=== PATIENT | female | born 2000 | race Hispanic/Latino ===

== ENCOUNTER 2023-01-21 10:19 | Emergency (ER) | payer SELFPAY ==
[2023-01-21 10:44] VITALS: BP 120/71; PULSE 121; RESP 18; TEMP 39.9; O2SAT 100
--- NOTE | 2023-01-21 11:47 | ED.URI ---
HPI - URI/Sore Throat General Chief Complaint: Upper Respiratory Infection Stated Complaint: Sore Throat/Bodyaches Time Seen by Provider: 01/21/23 11:33 Source: patient Mode of arrival: ambulatory Limitations: no limitations History of Present Illness HPI Narrative: Patient presents today complaining of headache, sore throat, back pain, and fever since last night. She currently rates her pain 10/10 and has not been taking any [id number] medications for symptoms prior to arrival. Denies nausea or vomiting. Denies diarrhea or abdominal pain. No recent antibiotic use. Related Data Allergies Allergy/AdvReac Type Severity Reaction Status Date / Time No Known Allergies Allergy Verified 01/21/23 11:44 Review of Systems Review of Systems: CONSTITUTIONAL: Denies body aches, chills, or sweats.+ fever EYES: Denies visual changes, redness, or discharge. ENT: Denies rhinorrhea, congestion, or otalgia.+ sore throat CARDIOVASCULAR: Denies chest pain, palpitations, or edema. RESPIRATORY: Denies cough or dyspnea. GASTROINTESTINAL: Denies abdominal pain, nausea, vomiting, or diarrhea. GENITOURINARY: Denies dysuria or hematuria. SKIN: Denies rash, itching, or wounds. MUSCULOSKELETAL: Denies joint pain, or myalgia.+ back pain NEUROLOGIC: Denies numbness, tingling, or weakness.+ headache PSYCH: Denies depression or anxiety. PMFSH Comments At time of signature, I have reviewed and agree with nursing past medical, surgical, social and family history unless otherwise noted. Please see nursing chart for further information. There is no relevant family history pertinent to the presenting complaint Exam Narrative: GENERAL: Mildly ill-appearing, well-nourished, tearful. HEAD: Normocephalic, atraumatic. EYES: EOMI. No redness or drainage. Conjunctivae normal. ENT: Mucous membranes pink and moist. Nares clear. No rhinorrhea. TMs normal bilaterally. Throat erythematous. Tonsils 3+. Uvula midline. NECK: Normal AROM. Supple. No lymphadenopathy. CHEST: No respiratory distress. Clear to auscultation. HEART: Regular rate and rhythm. No murmur appreciated. Normal peripheral pulses. MUSCULOSKELETAL: No bony tenderness of the spine. EXTREMITIES: Normal range of motion. No edema. SKIN: Warm, dry, no rash. Capillary refill normal. Normal skin turgor. NEURO: No focal deficits. Alert and oriented x3. Gait steady. PSYCH: Normal affect. No signs of depression or anxiety. Course Course Level of Care: Express Care Visit Vital Signs Vital signs: Vital Signs Temperature 103.9 F H 01/21/23 10:44 Pulse Rate 121 H 01/21/23 10:44 Respiratory Rate 18 01/21/23 10:44 Blood Pressure 120/71 01/21/23 10:44 Pulse Oximetry 100 01/21/23 10:44 Oxygen Delivery Room Air 01/21/23 10:44 Temperature 103.9 F H 01/21/23 10:44 Pulse Rate 121 H 01/21/23 10:44 Respiratory Rate 18 01/21/23 10:44 Blood Pressure 120/71 01/21/23 10:44 Pulse Oximetry 100 01/21/23 10:44 Oxygen Delivery Room Air 01/21/23 10:44 Reviewed MDM - URI/Sore Throat MDM Narrative Medical decision making narrative: Rapid strep positive. Ibuprofen provided for pain and fever. Amoxicillin sent to pharmacy. Anticipatory guidance given. Differential Diagnosis Differential diagnosis: Likely upper respiratory infection, viral infection, pharyngitis and other (Strep throat) Lab Data Attestation: I reviewed the patient's lab results. Lab results narrative: Rapid strep positive Critical Care Time Critical Care Time Critical Care Time: No Discharge Plan Discharge Clinical Impression: Strep throat Patient Disposition: Home, Self-Care Condition: Stable Instructions: Antibiotic Form, Strep Throat (DC) Additional Instructions: Has dado positivo por faringitis estreptoc?cica. Por favor, tome la amoxicilina hasta que se acabe. [place] Tylenol o ibuprofeno para el dolor o la fiebre. Danielle muchos l?quidos y descanse. Ser?s contagioso nick 2
[2023-01-21 11:53] VITALS: TEMP 39.4
[2023-01-21] MEDS: IBUPROFEN SUSPENSION 200 MG/10 ML UDC 600 MG PO (11:53)
== END 2023-01-21 12:03 | disposition home or self-care (01) ==
PROVIDERS: Emergency Provider Nurse Practitioner
DX: J02.0 Streptococcal pharyngitis (principal)
CPT/HCPCS: 87880; 99213; A9270; G0463

== ENCOUNTER 2024-12-25 11:01 | Outpatient (CLI) | payer SELFPAY ==
--- NOTE | ~2024-12-25 | US_ITS ---
EXAMINATION: US OB <= 14 weeks fetus DATE: 12/25/2024 18:30 CDT INDICATION: Positive test COMPARISON: 07/08/2024 TECHNIQUE: Real-time transabdominal obstetric ultrasound. FINDINGS: 2 para 1 Estimated date of delivery by last menstrual period is 08/15/2025 The uterus measures 9.4 x 5.5 x 7.2 cm. A gestational sac is identified within the uterus. A pole is identified, with a crown-rump length that measures 1.3 cm, corresponding to an approx imate gestational age of 7 weeks and 3 days. cardiac activity is identified at a rate of 161 bpm. The right ovary measures 2.2 x 1.1 x 2.1 cm. The left ovary measures 2.9 x 1.6 x 2.5 cm. Estimated date of delivery by ultrasound is 08/10/2025 IMPRESSION: Single intrauterine gestation with an approximate gestational age of 7 weeks and 3 days, with c ardiac activity identified. Reviewed, dictated and finalized at location A. IMPRESSION: Single intrauterine gestation with an approximate gestational age of 7 weeks an d 3 days, with cardiac activity identified.
== END 2024-12-25 11:02 | disposition home or self-care (01) ==
LOC: MICIMG 11:03
PROVIDERS: PCP Physician Assistant Medical; Visit Provider Physician Assistant Medical
DX: Z32.01 Encounter for pregnancy test, result positive (principal)
CPT/HCPCS: 76801

== ENCOUNTER 2025-01-25 21:51 | Emergency (ER) | payer MEDICAID, SELFPAY ==
--- OUTSIDE RECORDS SUMMARY | 2025-01-25 21:55 | XMS_ITS | Continuity of Care Document ---
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 Role Phone Health Education, Health Education Unavailable Unavailable Allergies, Adverse Reactions, Alerts Substance Reaction Status Criticality No Known Allergies Active No Inform ation Medications Medication Instructions Dosage Effective Dates (start - stop) Status Comments azithromycin 500 mg tablet take 2 tablet by oral route once, dispense 2 doses - Active Condoms-Akin Lubricated use 1 condom by as directed route 1 condom - Active Depo-Provera 150 mg/mL intramuscular suspension inject 1 milliliter by intramuscular route every 3 months 150 MG - Active Procedures Procedure Date Prev counseling, indiv, 15 (seen by earle salas) OFFICE/OUTPATIENT VISIT, EST URINE 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 30 FPACT only Advance Directives Directive Yes / No Effective Date File Name No Information Encounters Encounter Description Practice Location Reason(s) For Visit Diagnoses Date Provider Providers [facility] [address], [place], [place], [id number] , tel:[phone] [facility] Steven No Information Health Education Health Education. [address] [place], [address], [place]. [facility], [address], [place], [id number] , [place] tel:[phone] [facility] [place] Encounter for initial prescription of other contraceptives Health Education Health Education. [address] [place], [address], [place]. OFFICE/OUTPA TIENT VISIT, EST [facility], [address], [place], [id number] , [place] tel:[phone] [facility] LAB RESULT (chief complaint) Chlamydia infectionSurveillanc e for Depo-Provera contraception 1 Karson Omalley. [address], [id number] [place], [id number], [place]. tel:[phone] OFFICE/OUTPA TIENT VISIT, EST [facility], [address], [place], [place], [id number] , [place] tel:[phone] [facility] [place] initiate depo provera (chief complaint) Screen for STD (sexually transmitted disease)Initiation of Depo Provera 1 Karson Omalley. [address], [id number] [address], [place], [place], [id number], [place]. tel:[phone] [facility], [address], [place], [id number] , [place] tel:[phone] [facility] Encounter for initial prescription of other contraceptives 1 Health Education Health Education. [address] [place], [address], [place]. Family History Family Member Type Diagnosis Age At Onset No Information Payers Payer name Insurance type Covered alliance party ID Authoriza tion(s) No Information Social History Type Description Quantity Date Captured Comments Alcohol Use Details Unknown Caffeine Use Details Unknown Tobacco Use Status No Information Smoking Status No Information Sex Female Chief Complaint And Reason For Visit No Information Plan Of Treatment Date Type Action Status No Information History Of Present Illness Encounter Date Complaint History Of Prese nt Illness LAB RESULT Positive chlamyd ia. Per pt had chlamydia when she was and was treated but her partner did not receive treatment. Same partner. Denies any other partner. No complaints today. initiate depo provera consent si gned: 11/14/20current BCM: none, unprotected intercourse 1 week ago PT: negativePatient requesting depoprovera for contraception. Currently denies contraception. Last unprotected intercourse was 1 week ago. Pt reports normal menses since then. Denies sexual activity since LMP. Instructions Date Instruction Additional Infor mation No Information Assessments Type Assessment Date No Information
[2025-01-25 21:56] VITALS: BP 107/51; PULSE 83; RESP 20; TEMP 36.1; O2SAT 100
--- NOTE | 2025-01-26 02:24 | ED.GENADULT ---
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 Baby not moving Time Seen by Provider: 01/26/25 02:13 History of Present Illness HPI narrative: Patient is a 22-year-old female presents emergency department with chief complaint of not feeling her baby move as much as normal patient is approximately 12 weeks and reports that she has been feeling the baby move but today did notice that she did feel as much as normal patient denies vaginal bleeding denies vaginal discharge reports no pain Related Data Allergies Allergy/AdvReac Type Severity Reaction Status Date / Time No Known Allergies Allergy Verified 01/25/25 21:53 Review of Systems Review of Systems: A 10 system review of systems was completed on the patient and is negative except for what is stated in the HPI. Nursing and ancillary documentation was reviewed. Exam Narrative: GENERAL: Well-appearing, well-nourished, and in no acute distress. HEAD: Normocephalic, atraumatic. EYES: PERRLA and EOMI. ENT: Nares clear, no rhinorrhea or epistaxis. Mucous membranes moist. NECK: Supple. CHEST: Clear to auscultation. No respiratory distress. HEART: Regular rate and rhythm. No murmur heard. Normal peripheral pulses. ABDOMEN: Soft, nontender, nondistended, normal active bowel sounds. EXTREMITIES: Normal range of motion. No edema. SKIN: Warm, dry, no rash. NEURO: No focal deficits. Alert and oriented x3. PSYCH: Normal mood and affect. Course Vital Signs Vital signs: Vital Signs Temperature 36.1 C L 01/25/25 21:56 Pulse Rate 83 01/25/25 21:56 Respiratory Rate 20 01/25/25 21:56 Blood Pressure 107/51 L 01/25/25 21:56 Pulse Oximetry 100 01/25/25 21:56 Temperature 36.1 C L 01/25/25 21:56 Pulse Rate 83 01/25/25 21:56 Respiratory Rate 20 01/25/25 21:56 Blood Pressure 107/51 L 01/25/25 21:56 Pulse Oximetry 100 01/25/25 21:56 Medical Decision Making [facility] Narrative Medical decision making narrative: A bedside ultrasound was performed by me that showed good cardiac activity and movement Vital Signs Vital Signs: Vital Signs Temperature 36.1 C L 01/25/25 21:56 Pulse Rate 83 01/25/25 21:56 Respiratory Rate 20 01/25/25 21:56 Blood Pressure 107/51 L 01/25/25 21:56 Pulse Oximetry 100 01/25/25 21:56 Temperature 36.1 C L 01/25/25 21:56 Pulse Rate 83 01/25/25 21:56 Respiratory Rate 20 01/25/25 21:56 Blood Pressure 107/51 L 01/25/25 21:56 Pulse Oximetry 100 01/25/25 21:56 Discharge Plan Discharge Clinical Impression: Patient Disposition: Home Condition: Stable Instructions: Antibiotic Form, (ED) Additional Instructions: Please follow-up with your OBGYN per your scheduled appointment Patient Language: Azeri Prescriptions: No Action amoxicillin 875 mg tablet 875 mg PO Q12H 10 Days Qty: 20 0RF Follow-up/Referrals: Phu,ERNESTO Ramos [Primary Care Provider] - Time of Disposition: 02:25
--- OUTSIDE RECORDS SUMMARY | 2025-01-26 02:33 | XMS_ITS | Continuity of Care Document ---
Author Organization [facility] [employer] Address [address] [place] [address] Phone Care Team Providers Care Workplace Trainer And Assessor Name Role Phone Health Education, Health Education [...] Diagnoses Date Provider Providers [facility]ied on [facility], [address], [place], [place], [id number] , tel:[phone] [facility] Steven No Information Health Education Health Education. [address] [place], [address], [place]. [facility], [address], [place], [id number] , [place] tel:[phone] [facility] [place] Encounter for initial prescription of other contraceptives Health Education Health Education. [address] [place], [address], [place]. OFFICE/OUTPA TIENT VISIT, EST [facility], [address], [place], [id number] , [place] tel:[phone] [facility] LAB RESULT (chief complaint) Chlamydia infectionSurveillanc e for Depo-Provera contraception 1 Karson Omalley. [address] [facility] [address], [id number] [place], [id number], [place]. tel:[phone] OFFICE/OUTPA TIENT VISIT, EST [facility], [address], [place], [place], [id number] , [place] tel:[phone] [facility] [place] initiate depo provera (chief complaint) Screen for STD (sexually transmitted disease)Initiation of Depo Provera 1 Karson Omalley. [address] [facility] [facility] [address], [id number] [address], [place], [place], [id number], [place]. tel:[phone] [facility], [address], [place], [id number] , [place] tel:[phone] [facility] Encounter for initial prescription of other contraceptives 1 Health Education Health Education. [address] [place], [address], [place]. Family History Family Member Type Diagnosis Age At Onset No Information Payers Payer name Insurance type Covered libertarian ID Authoriza tion(s) No Information Social History [...]
[2025-01-26 03:12] VITALS: BP 112/56; PULSE 72; RESP 14; O2SAT 100
== END 2025-01-26 03:13 | disposition home or self-care (01) ==
LOC: ANHED 01-26 02:32
PROVIDERS: Emergency Provider Emergency Medicine; PCP Physician Assistant Medical
DX: O36.8190 Decreased fetal movements, unspecified trimester, not applicable or unspecified (principal); Z3A.12 12 weeks gestation of pregnancy
CPT/HCPCS: 99281